=== PATIENT | male | born 1955 | race Caucasian/White ===

== ENCOUNTER 2017-02-03 16:04 | Emergency (ER) | payer BC ==
--- NOTE | 2017-02-18 13:49 | ER ---
ADMIT: 02/03/2017 RM/LOC: ER [facility] MR#: [id number] [address] [address] ANSHU COLEMAN M [address] [place] [address] Emergency Room Report SEX: M AGE: 61 : 1955 DATE: 02/03/2017 CHIEF COMPLAINT: Back pain. COURSE IN THE EMERGENCY ROOM: The patient was getting Percocet 1 tab here in the emergency room. The patient also complained of some urinary complaints. Bladder scan was done. After voiding, only had 249 post void. Creatinine was checked, that was normal. CT of the L-spine was done. It is negative for any acute findings. Sent the patient home. Told him to follow up with primary care physician if worsens. DA Ocampo / Gibson Jaeger MD / modl JOB #: [id number] CC: Gibson Jaeger MD, Attending Physician Phil Sigala MD, Family Physician
--- NOTE | 2017-03-06 21:25 | ER ---
ADMIT: 02/03/2017 RM/LOC: ER [facility] MR#: [id number] [address] [place] [id number] ANSHU COLEMAN M [address] [place] [address] Emergency Room Report SEX: M AGE: 61 : 1955 DATE: 02/03/2017 ADDENDUM: CHIEF COMPLAINT: Back pain. HISTORY OF PRESENT ILLNESS: This is a 61-year-old male, who has a history of liver carcinoma. He was sent into the ER by his oncologist in [place] for back pain. They were concerned that he could have mets to his spine. When he arise, he mainly complains of lower back pain with radiculopathy to his left leg. PAST MEDICAL HISTORY: Liver cancer. Has had radiation with a tube in his liver. MEDICATIONS: Please see nurse's note. ALLERGIES: NO KNOWN ALLERGIES. SOCIAL HISTORY: Denies any drug or alcohol use. Does smoke half pack of tobacco daily. FAMILY HISTORY: Noncontributory. REVIEW OF SYSTEMS: CONSTITUTIONAL: Denies any fevers, chills, or sweats. CARDIOVASCULAR AND RESPIRATORY: Denies any chest pain or shortness of breath. GI/: Denies any nausea, vomiting, diarrhea, or dysuria. MUSCULOSKELETAL: The only complaint is low back pain with a little bit of numbness going into his right lower leg, right thigh. All systems otherwise negative. PHYSICAL EXAMINATION: VITAL SIGNS: Blood pressure is 116/58, pulse is 104, respirations 18, temperature is 99.1, tympanic; saturation of oxygen is 99% on ADMIT: 02/03/2017 RM/LOC: ER [facility] MR#: [id number] [address] [place] [id number] ANSHU COLEMAN M [address] [place] [address] Emergency Room Report SEX: M AGE: 61 : 1955 room air. GENERAL APPEARANCE: The patient is in no acute distress, alert. HEENT: Pharynx is moist. No tonsillar swelling or exudate. NECK: No midline tenderness. BACK: No CVA tenderness. On exam, he is mostly tender on the lumbar spine, but not on the vertebrae itself lateral to the vertebrae and the soft tissues. MUSCULOSKELETAL: He has full range of motion with lower extremities. Full range of motion with all his toes. COURSE IN THE EMERGENCY ROOM: CT of his L-spine was done, is negative for any acute findings. I discharged him home and told him to follow up with his primary care physician as needed. DA Ocampo / Gibson Jaeger MD / gail JOB #: [id number] CC: Gibson Jaeger MD, Attending Physician Phil Sigala MD, Family Physician
[2017-03-31] MEDS ORDERED: VITAMIN B-150 MG PO (06:06)
[2017-03-31] MEDS ORDERED: NEXIUM40 MG PO (06:06)
[2017-03-31] MEDS ORDERED: GINSENG100 M1 PO (06:06)
[2017-03-31] MEDS ORDERED: BISACODYL5 MG PO (06:07)
[2017-03-31] MEDS ORDERED: COLACE-DPS100 MG PO (06:08)
[2017-03-31] MEDS ORDERED: FENTANYL1 EAC1 TD (06:08)
[2017-03-31] MEDS ORDERED: AUGMENTIN 250250 MG PO (06:09)
[2017-03-31] MEDS ORDERED: DILAUDID2 MG PO (06:09)
[2017-03-31] MEDS ORDERED: DIFLUCAN DPS150 MG PO (06:10)
[2017-03-31] MEDS ORDERED: NEURONTIN DPS300 MG PO (06:10)
== END 2017-02-03 18:15 | disposition home or self-care (01) ==
LOC: ER 16:04
PROC: BT20ZZZ Computerized Tomography (CT Scan) of Bladder (ICD-10-PCS; principal; 2017-02-03)
DX: M54.5 Low back pain (principal); F17.210 Nicotine dependence, cigarettes, uncomplicated; Z79.899 Other long term (current) drug therapy

== ENCOUNTER 2017-03-23 21:50 | Inpatient (IN) | payer BC ==
[~2017-03-23] VITALS: Ht 165.1 cm; Wt 62.9 kg
--- NOTE | ~2017-03-23 | ER ---
ADMIT: 03/24/2017 RM/LOC: 533 [facility] MR#: [id number] [address] [address] ANSHU COLEMAN M [address] [place] [address] Emergency Room Report SEX: M AGE: 61 : 1955 DATE: 03/23/2017 HISTORY OF PRESENT ILLNESS: The patient is a pleasant 61-year-old gentleman, came to the ER with chief complaint of right lower quadrant pain. Pain per patient started since noon. The patient has been recently diagnosed with liver tumor and also received radiation therapy treatment 2 months ago and the next appointment is in a month. Also, the patient is supposed to start chemotherapy tomorrow. The patient also has a pigtail catheter placed to drain the bile, which recently has been manipulated and states that the catheter is working properly. The patient has been closely followed up by [facility]. The patient denies any vomiting, but has some nausea. Pain is sharp, 9 to 10/10 in severity and is right lower quadrant. PHYSICAL EXAMINATION: VITAL SIGNS: The patient was tachycardic with heart rate of 110, had low-grade fever with a temperature of 100.3, blood pressure in the ER was 115/70, and respiratory rate was 18. GENERAL: The patient was in moderate distress, because of the pain. HEENT/NECK: There was no icterus. Pupils were 3 mm, reactive to light bilaterally. Conjunctivae were not pale. Trachea was midline. There was no bruit in the neck. I did not feel any enlarged lymph nodes in the head and neck and supraclavicular area and axillary area. LUNGS: Clear bilaterally. HEART: Normal S1, S2, without any murmurs. ABDOMEN: Non-tense, no rebound, no guarding. The patient had moderate right lower quadrant tenderness. The patient had no CVA tenderness. EXTREMITIES: I did not notice any swelling or pitting edema. The patient had normal peripheral pulses. Motor and sensory are grossly normal. There is some bile coming out of the drain and there is no erythema around the drain. Kenyon Dennison MD/ gail JOB #: [id number] CC: Sammy Sigala MD, Attending Physician Sammy Sigala MD, Family Physician
--- NOTE | ~2017-03-23 | CO ---
ADMIT: 03/24/2017 RM/LOC: 533 [facility] MR#: [id number] [address] [address] ANSHU COLEMAN M [address] [place] [address] Consultation SEX: M AGE: 61 : 1955 DATE OF CONSULTATION: 03/24/2017 ATTENDING PHYSICIAN: Sammy Sigala CONSULTING PHYSICIAN: Saad Calvo MD HISTORY OF PRESENT ILLNESS: The patient is a very pleasant 61-year-old male, recently diagnosed with hepatocellular cancer who has had recent treatment at [facility]. Reportedly, has had radiation therapy to his liver and has a biliary drain in place. The patient presented with abdominal discomfort, some nausea, low grade temps who was admitted for observation, pain control, and antibiotics. The patient had a workup culture of his biliary fluid, which was certainly cloudy in color with over 10,000 white blood cells within the fluid with Gram stain positive for multiple bacteria and yeast. His CT scan of abdomen and pelvis, which showed no intraabdominal complicating features and there is some expected inflammation around the liver secondary to the tumor and recent radiation treatment. In addition, the CT scan showed increased size of the liver lesions compared to another recent study done. His medications are outlined in the hospital chart, which include Zosyn and vancomycin. PAST MEDICAL HISTORY: Mostly surrounds as advanced hepatocellular cancer reflux disease. SOCIAL HISTORY: He was a previous smoker. Nondrinker. FAMILY HISTORY: Otherwise, noncontributory. ALLERGIES: HE HAS NO ALLERGIES. REVIEW OF SYSTEMS: Denies headaches. No chest pain or shortness of breath. He has had abdominal pain per HPI. No extremity complaints. PHYSICAL EXAMINATION: VITAL SIGNS: He is afebrile. Vitals are stable. HEART: Regular. LUNGS: Clear. ABDOMEN: Soft, nondistended, mildly tender to deep palpation throughout. He ADMIT: 03/24/2017 RM/LOC: 533 [facility] MR#: [id number] [facility] [address] [address] ANSHU COLEMAN M [address] [place] [address], [place] [address] Consultation SEX: M AGE: 61 : 1955 has a biliary drain in place that somewhat cloudy and functioning normally. ASSESSMENT AND PLAN: The patient is a 61-year-old with likely cholangitis and with a large hepatocellular cancer with central tumor necrosis, likely from secondary to recent radiation treatment. I believe he is being started on antifungals and broad-spectrum antibiotics. At this point in time, with biliary drain in place, antibiotics do not see any need for consideration of cholecystectomy. Hopefully, we will continue antibiotic therapy. The patient continues to improve. May need reconsult with our [facility] colleagues regarding any other suggestive palliative measures for the patient certainly if his advanced liver cancer and cholangitis with drain in place makes his management very difficult. Saad Calvo MD/ gail JOB #: [id number] CC: Sammy Sigala, Attending Physician Sammy Sigala, Family Physician
--- NOTE | 2017-03-24 19:52 | ER ---
ADMIT: 03/24/2017 RM/LOC: 533 [facility] MR#: [id number] [address] [place], [place] [address] ANSHU COLEMAN M [address] [place] [address] Emergency Room Report SEX: M AGE: 61 : 1955 DATE: 03/23/2017 HISTORY OF PRESENT ILLNESS: The patient is a 61-year-old male, came to the ER with chief complaint of right lower quadrant pain which is sharp and moderate- to-severe in severity since noon. The patient denies similar pain in the past. The patient states he has been recently since November diagnosed with liver cancer and had radiation therapy 2 months ago and is supposed to have chemotherapy tomorrow. The patient also complains of nausea without any vomiting. The patient states the pigtail drain was put in the bile system because of the liver was very large and for draining the bile. The use the pigtail was recently manipulated, we checked which was working, at [facility]. The patient has close followup with the oncologist and child day care provider at [facility]. PHYSICAL EXAMINATION: VITAL SIGNS: In the ER, the patient has low-grade fever of 100.3, and heart rate of 111. Sepsis workup is started. The patient has stable blood pressure of 115/70, with respiratory rate of 18. GENERAL: The patient is in moderate distress, is alert, oriented. HEENT/NECK: I did not see any obvious jaundice and the sclerae is not icteric, and conjunctivae are not pale. CHEST: Clear bilaterally without any crackles. HEART: Normal S1, S2, without any murmurs or gallops. ABDOMEN: Right lower quadrant tenderness without any rebound or guarding. There is a catheter in the middle of the abdomen below the xiphoid area, which is full of bile and there is no erythema or pus discharge around it. EXTREMITIES: I did not see any swelling or pitting edema. Normal peripheral pulses. EMERGENCY ROOM COURSE: Followup lab work showed WBC of 9.7, with hemoglobin of 9.7, and platelets of 630,000. PT was 10.9, creatinine was 0.6, with glucose of 110. AST and ALT were 6 and 62 respectively. Lactic acid was 1.4, ADMIT: 03/24/2017 RM/LOC: 533 [facility] MR#: [id number] [address] [address] ANSHU COLEMAN M [address] [place] [address] Emergency Room Report SEX: M AGE: 61 : 1955 and the patient had albumin of 2.2 with alkaline phosphatase of 476. Absolute neutrophil count was 6800. The specimen of the bile was sent to the lab, which showed numerous, more than 10,000 rbc and wbc and yeast and Gram- positive cocci, as the 1st specimen was got from the back, non-sterile, the 2nd specimen was sent to the labs; results pending. CT scan of the abdomen and pelvis was suggestive of large tumor in the liver with necrotic center and questionable inflammation and infection. There is also questionable cholecystitis versus reactive changes. There was no indication of appendicitis on the CT scan. The patient was started on antibiotic therapy with vancomycin and Zosyn for abdominal pain, sepsis, questionable peritonitis versus developing cholangitis versus cholecystitis. Family Medicine was consulted and the patient was admitted for further followups and treatments. Kenyon Dennison MD/ gail JOB #: [id number] CC: Sammy Sigala MD, Attending Physician Sammy Sigala MD, Family Physician
--- NOTE | 2017-03-25 07:50 | HP ---
ADMIT: 03/24/2017 RM/LOC: 533 [facility] MR#: [id number] [address] [address] ANSHU COLEMAN M [address] [place] [address] History and Physical SEX: M AGE: 61 : 1955 DATE OF SERVICE: HISTORY OF PRESENT ILLNESS: Anshu Coleman presented to the emergency room with history over the last 24 hours of significantly increased abdominal pain associated with increased nausea and vomiting and a low-grade fever in the emergency room. This is in the background of a patient with hepatocellular carcinoma, which is advanced. Has been managed by Dr. Espinoza, medical oncologist at [facility]. He has had radiation therapy. He has had external catheter placed for biliary drainage and he is scheduled to start some oral chemotherapy (sorafenib) in the near future. His primary is Dr. Sammy Sigala. On presentation in the emergency room, Dr. Dennison did a fair extensive evaluation including a CT scan of the abdomen, which demonstrated a huge multinodular liver with one extremely large mass with some necrosis. His labs were done also notable that he did a Gram stain of drainage from the biliary catheter. He had extensive bacteria and is also has some yeast and white cells in the drainage. He has vomited multiple times since he came to the hospital. His sepsis markers thus far have been negative, however. He is aware of the serious nature of this in the interval status of this and he is DNR/DNI, but he wants to continue other treatments at this time. PAST MEDICAL HISTORY: First and foremost the primary hepatocellular carcinoma locally advanced with treatments as described above. Also, history of alcoholism, acid reflux, erectile dysfunction, and cervical spinal stenosis. SOCIAL HISTORY: The patient is . Former history of smoking and alcohol use. I believe he has quit both at this time. FAMILY HISTORY: Coronary artery disease in his father. Sister of unknown type of cancer. MEDICATIONS: Home medications on admission were vitamin supplement, Dulcolax, and ginseng. ALLERGIES: NONE KNOWN. REVIEW OF SYSTEMS: CONSTITUTIONAL: Low-grade fever. No reported chills. Roughly 30-pound weight loss over the last six months since the diagnosis was made. GI: As in the above history. No report of any change in bowel movements. : No complaints. CV: No chest pain. RESPIRATORY: Not short of breath or excessive cough. ENT: No acute complaints. EYES: No acute complaints. NEURO: Nothing focal at this time. PSYCH: Mental status under the circumstances has been good. PHYSICAL EXAMINATION: GENERAL: This is a somewhat cachectic appearing, alert, 61-year-old male. He vomited once during my evaluation. ADMIT: 03/24/2017 RM/LOC: 533 [facility] MR#: [id number] [address] [address] ANSHU COLEMAN [address] [place] [address] History and Physical SEX: M AGE: 61 : 1955 VITAL SIGNS: Around the time I examined him, his temp was 97.6, pulse 103, respirations 18, BP 106/67, and O2 saturation 93% on room air. He is fully alert. ENT: Hearing is normal. No nasal discharge. Oral mucous membranes are moist. No oral lesions are identified. EYES: Normal in appearance. Pupils equal. NECK: No masses or tenderness or lymphadenopathy. HEART: Regular rhythm. I do not hear a murmur. LUNGS: Clear anterior and posterior. Normal respiratory effort. ABDOMEN: The liver is firm extending well below the costal margin. Fairly diffuse tenderness of the abdomen, but I do not discern any rebound. Bowel sounds are audible. No clinical or radiographic signs of ascites. He has a biliary drainage catheter emanating from his upper anterior chest. GENITALIA: Not examined. SKIN: No acute rashes. EXTREMITIES: Upper extremities unremarkable. Other than his cachectic state, lower extremities otherwise likewise unremarkable. NEURO: Grossly intact. PSYCH: He is alert, calm. IMPRESSION: 1. Fever, vomiting, and abdominal pain in the setting of a patient with advanced hepatocellular carcinoma. 2. Concern for acute cholangitis based on clinical presentation and bacterial content of his biliary drainage. PLAN: Per the patient's request to be maintained DNR/DNI, but full treated otherwise. I started on broad-spectrum antibiotic coverage and I have asked for Infectious Disease consultation, Dr. Espana, he was agreed to see him. Tried to manage his symptoms with Dilaudid, antiemetics, and IV fluids at the present time. Prognosis is obviously guarded. The patient is aware of that. Dwight Lucas MD/ gail JOB #: [id number] CC: Sammy Sigala, Attending Physician Sammy Sigala, Family Physician
--- NOTE | 2017-03-26 08:10 | CO ---
ADMIT: 03/24/2017 RM/LOC: 533 [facility] MR#: [id number] [address] [address] ANSHU COLEMAN M [address] [place] [address] Consultation SEX: M AGE: 61 : 1955 DATE OF CONSULTATION: 03/25/2017 ATTENDING PHYSICIAN: Sammy Sigala CONSULTING PHYSICIAN: Amaya Phillips MD REASON FOR CONSULTATION: Abdominal pain. HISTORY OF PRESENT ILLNESS: The patient is a pleasant 61-year-old gentleman with hepatocellular carcinoma diagnosed on November 08, 2016, admitted with abdominal pain. He was seen at [facility], had surgery and he has currently a biliary drain. His pain is constant, 8/10 on visual analogue scale, aching, throbbing pain. Radiates to right upper back. At present, he is on Dilaudid PUBLICITY AGENT, which is helping some. The patient states that he has tried fentanyl in the past which was helpful. He is not on any neuropathic pain medications or muscle relaxants at this time. PAST MEDICAL HISTORY: Significant for hepatocellular carcinoma and GERD. PAST SURGICAL HISTORY: Left shoulder surgery. MEDICATIONS: Reviewed from the med list. FAMILY HISTORY: Noncontributory. REVIEW OF SYSTEMS: As per HPI. Other than that, all other review of systems noted to be negative. PHYSICAL EXAMINATION: GENERAL: The patient is alert, oriented, not in acute distress. HEENT: PERRLA. EOMI. NECK: Supple. No lymphadenopathy. LUNGS: Clear to auscultation. HEART: Regular rate and rhythm. ABDOMEN: Soft, nondistended. Tender in the right upper quadrant. Drain noted. NEUROLOGICAL: Intact. ASSESSMENT: 1. Hepatocellular carcinoma. 2. Chronic abdominal pain. ADMIT: 03/24/2017 RM/LOC: 533 [facility] MR#: [id number] [address] [address] ANSHU COLEMAN M [address] [place] [address] Consultation SEX: M AGE: 61 : 1955 3. Cancer pain. PLAN: 1. The patient is not willing for any invasive interventional pain management therapy including intrathecal morphine pump. 2. I will start the patient on fentanyl 12 mcg q.72 hours, plan to increase to 25 mcg q.72 hours in future. 3. Continue Dilaudid PUBLICITY AGENT for now. 4. Gabapentin 300 mg p.o. at bedtime for 3 days, then b.i.d. for 3 days, then t.i.d. for 3 days, then q.i.d. 5. Follow up in pain clinic in 2 weeks. Thank you for the consultation. Amaya Phillips MD/ gail JOB #: [id number] CC: Sammy Sigala, Attending Physician Sammy Sigala, Family Physician
[2017-03-31] MEDS ORDERED: VITAMIN B-150 MG PO (06:06)
[2017-03-31] MEDS ORDERED: NEXIUM40 MG PO (06:06)
[2017-03-31] MEDS ORDERED: GINSENG100 M1 PO (06:06)
[2017-03-31] MEDS ORDERED: BISACODYL5 MG PO (06:07)
[2017-03-31] MEDS ORDERED: FENTANYL1 EAC1 TD (06:08)
[2017-03-31] MEDS ORDERED: COLACE-DPS100 MG PO (06:08)
[2017-03-31] MEDS ORDERED: DILAUDID2 MG PO (06:09)
[2017-03-31] MEDS ORDERED: AUGMENTIN 250250 MG PO (06:09)
[2017-03-31] MEDS ORDERED: NEURONTIN DPS300 MG PO (06:10)
[2017-03-31] MEDS ORDERED: DIFLUCAN DPS150 MG PO (06:10)
--- NOTE | 2017-04-19 08:57 | CO ---
ADMIT: 03/24/2017 RM/LOC: 533 [facility] MR#: [id number] [address] [address] ANSHU COLEMAN M [address] [place] [address] Consultation SEX: M AGE: 61 : 1955 DATE OF CONSULTATION: 03/24/2017 ATTENDING PHYSICIAN: Sammy Sigala CONSULTING PHYSICIAN: Saad Calvo MD REASON FOR CONSULTATION: Gallbladder wall thickening upon CT. HISTORY OF PRESENT ILLNESS: Anshu is a very pleasant, 61-year-old, , although [place]alese-speaking male with an unfortunate history of hepatocellular carcinoma diagnosed at the 08 of November of this year. He presents to the hospital because he had sudden onset of right upper quadrant abdominal pain that started yesterday. He has also become nauseous with this, and while in the hospital has had a couple of times emesis. He denies any hematemesis, fever, chills, night sweats, diarrhea, constipation, dark or bloody stools. He was diagnosed with hepatocellular carcinoma from [facility] where they also addressed his gallbladder at that time. Currently, he has a biliary drain in place. He had a HIDA scan performed on 11/24 of this year which revealed no uptake of the radiotracer within the gallbladder. PAST MEDICAL HISTORY: Significant for hepatocellular carcinoma and GERD. PAST SURGICAL HISTORY: Left shoulder surgery. ALLERGIES: NO KNOWN MEDICATION OR DRUG ALLERGIES, BUT HAS AN INTOLERANCE TO MORPHINE. MEDICATIONS: Well documented in chart. FAMILY HISTORY: Noncontributory. SOCIAL HISTORY: The patient denies any current tobacco, alcohol, or illicit drug use. REVIEW OF SYSTEMS: CONSTITUTIONAL: The patient denies any fever, chills, or night sweats. The rest of a comprehensive 10-point review of systems was performed and all other systems are negative. PHYSICAL EXAMINATION: GENERAL: The patient is in no acute distress. He is alert and oriented. HEENT: Head is normocephalic and atraumatic. EOMS are intact. Conjunctivae are free of icterus, erythema, or pallor. Pinnae, free of deformities. Nose is midline. No tracheal deviation. NECK: Supple. SKIN: Negative for jaundice, clubbing, edema, pallor, or cyanosis. LUNGS: Normal respiratory effort. ADMIT: 03/24/2017 RM/LOC: 533 [facility] MR#: [id number] [address] [address] ANSHU COLEMAN [address] [place] [address] Consultation SEX: M AGE: 61 : 1955 HEART: Distal pulses intact. Regular rate and rhythm. ABDOMEN: Soft, nondistended, tender in right upper quadrant. Drain noted protruding through the abdomen with brownish fluid. NEURO: Grossly intact. DIAGNOSTIC IMAGING: CT of abdomen and pelvis revealed a large hypodensity noted within the liver consistent with his malignancy. There is also gallbladder wall thickening noted. ASSESSMENT: 1. Chronic cholecystitis. 2. Hepatocellular carcinoma. PLAN: Given the patient's underlying condition, it is unlikely that we would be successful removing his gallbladder. It is hard to tell as well that his gallbladder is definitively causing his symptoms with the hepatocellular carcinoma also in close proximity to this. The patient and his significant other, who was present during my whole assessment, agree with this plan and have good understanding that surgery may not be the best course of action, which I speculate is probably why he has the catheter in the first place. Because of this, he will probably benefit the most from surgical consultation from [facility], but at the very least we can potentially offer a consult to Interventional Radiology and may putting in a T tube or another catheter. Final clinical decision-making will be based upon Dr. Calvo once I report to him. Thank you for the consultation on this patient. DA Gaitan / Saad Calvo MD / gail JOB #: [id number] CC: Sammy Sigala, Attending Physician Sammy Sigala, Family Physician
--- NOTE | 2017-04-26 10:21 | CO ---
ADMIT: 03/24/2017 RM/LOC: 533 [facility] MR#: [id number] [address] [address] ANSHU COLEMAN M [address] [place] [address] Consultation SEX: M AGE: 61 : 1955 DATE OF CONSULTATION: 03/24/2017 ATTENDING PHYSICIAN: Sammy Sigala CONSULTING PHYSICIAN: Kelley Espana MD REASON FOR CONSULT: Sepsis. Thank you, Dr. Lucas, for the consult and involving me in this patient's care. HISTORY OF PRESENT ILLNESS: The patient is a 61-year-old man with history of hepatocellular carcinoma, which was recently diagnosed in November of 2016. He was evaluated at [facility] and underwent radiation therapy. He currently has a biliary drain, which enters at the epigastric region, draining bile. The patient presented to the ER yesterday with complaint of right upper quadrant pain, which started around yesterday. It was associated with some nausea, but denied any vomiting. He also had some low-grade fevers and was noted to have fever of 100.3 in the ER. PAST MEDICAL HISTORY: 1. Advanced hepatocellular carcinoma. 2. Tobacco use. 3. GERD. SOCIAL HISTORY: He lives at home with his daughter and . Denies any alcohol or recreational drug use. He was smoking one pack per day and quit since November 2016. FAMILY HISTORY: Denies any family history of cancer, heart disease, or diabetes mellitus. ALLERGIES: NO KNOWN DRUG ALLERGIES. CURRENT MEDICATIONS: Include vancomycin 1 g q.12 hours and Zosyn 3.375 g every 8 hours. REVIEW OF SYSTEMS: A 10-point review of systems negative except as mentioned in HPI. PHYSICAL EXAMINATION: VITAL SIGNS: Current temperature 96.4, heart rate 85, blood pressure 115/59, 99% on room air, and respirations 18. GENERAL: No acute distress. HEENT: Head is normocephalic and atraumatic. Extraocular movements intact. LYMPH: No palpable anterior/posterior cervical or supraclavicular lymphadenopathy. CHEST: Clear to auscultation bilaterally. No wheezes, rales, or rhonchi. Decreased breath sounds at bases. CARDIOVASCULAR: S1 and S2 heard. Regular rate and rhythm. ABDOMEN: There is guarding, right upper quadrant tenderness, active bowel ADMIT: 03/24/2017 RM/LOC: 533 [facility] MR#: [id number] [address] [address] ANSHU COLEMAN M [address] [place] [address] Consultation SEX: M AGE: 61 : 1955 sounds. There is a biliary drain noted with bile in the bag. PSYCH: Normal affect. Memory intact. SKIN: No rash noted on exposed skin. DATA REVIEW: The bile from the bag was sent, which the Gram stain showed few WBC, many gram-positive cocci, many gram-positive rods, many gram-negative rods, and few yeast. Culture is pending at this time. Blood cultures have no growth to date. Urinalysis was negative. CT scan of abdomen and pelvis was done, which showed mild gallbladder wall thickening and inflammatory change, which could be cholecystitis. No gallstones. Progression of liver masses with internal-external biliary drainage catheter. Chest x-ray was negative. ASSESSMENT AND PLAN: 1. Sepsis likely secondary to biliary source. Multiple organisms growing from the bile fluid including yeast. At this time, I will continue him on vancomycin and Zosyn and also add Micafungin IV 100 mg once daily. Blood cultures are no growth to date. We will narrow antibiotics accordingly. 2. Right upper quadrant pain likely secondary to cholecystitis and his malignancy. I will consult Surgery at this time if he needs any HIDA scan or further management. Given his advanced hepatocellular cancer, it is likely guarded prognosis. 3. Hepatocellular cancer status post radiation. Thank you for the consult and I will continue to follow the patient. Kelley Espana MD/ gail JOB #: [id number] CC: Sammy Sigala, Attending Physician Sammy Sigala, Family Physician
--- NOTE | 2017-05-14 19:05 | DS ---
ADMIT: 03/24/2017 RM/LOC: 533 [facility] MR#: [id number] [id number] [place], [place] [address] ANSHU COLEMAN M [address] [place] [address] General Discharge Summary SEX: M AGE: 61 : 1955 ADMISSION DATE: 03/24/2017 DISCHARGE DATE: 03/30/2017 INDICATION FOR HOSPITALIZATION: Ascencion is a 61-year-old, , male, well known to myself, admitted by Dr. Lucas with nausea, vomiting, and low-grade fevers through the emergency room with known hepatocellular carcinoma, managed by Dr. Barry at [facility]. He has external biliary catheter drain, had been started on oral chemotherapy and presented to the ER with a large liver mass with necrosis. He has extensive bacteria and yeast and drainage from the biliary catheter. He was admitted for further evaluation and management. Please see his admission H and P for the details regarding his history of present illness, past medical history, physical exam, and assessment at time of hospitalization. HOSPITAL COURSE: On admission, he was started on IV fluids, analgesics, and antiemetics. Routine cultures were obtained, and he was started on Zosyn and vancomycin in the ER. He is made DNR/DNI status. Infectious Disease was consulted. Routine nausea medications and IV fluids and electrolytes were ordered. Surgery was consulted regarding his complex problems and his liver. POLST form was requested on the . Dr. Phillips was requested for possible pain management. Vanco dose adjustments were made on the . By the , his vital signs were stable. Ascites culture grew multiple organisms. Blood cultures were negative. IV fluid and electrolyte adjustments were made with hypokalemia noted. MRI of the abdomen and pelvis for followup of his hepatocellular carcinoma were requested by the family and arranged copies to his oncologist. Over the next couple days, he continued to improve. No MRSA was noted, and his vanco was discontinued on March 29. The patient was switched from vanco and Zosyn and Unasyn on March 29 by Infectious Disease. On March 30, the patient was discharged to home. FINAL DISCHARGE DIAGNOSES: Include: 1. Metastatic hepatocellular carcinoma with peritonitis with positive cultures with multiple organisms. 2. Sepsis. 3. Transcutaneous biliary drain. 4. Hyponatremia. 5. Alcohol use disorder. 6. Erectile dysfunction. 7. Cervical spine stenosis. 8. Acid reflux. PROCEDURES: Include IV antibiotics, fluid and electrolyte adjustments, IV analgesics and antiemetics. MEDICATIONS ON DISCHARGE: Include: 1. Nexium 40 mg daily. 2. Bisacodyl 10 mg daily. 3. Fentanyl 25 mcg patch q.72 hours. 4. Docusate sodium 100 mg b.i.d. ADMIT: 03/24/2017 RM/LOC: 533 [facility] MR#: [id number] [address] [place], [place] [id number] [place] [address] General Discharge Summary SEX: M AGE: 61 : 1955 5. Dilaudid 1 or 2 mg every 4 hours p.r.n. pain. 6. Augmentin 875 mg b.i.d. with meals for 14 days. 7. Fluconazole 150 mg daily for 14 days. 8. Gabapentin 300 mg q.i.d. LAB/X-RAY DATA: Include on March 30; white count of 9.9, hemoglobin 9.3, and platelet count 748,000. On March 23; white count 9.7, hemoglobin 9.7, and platelet count of 636,000. Peritoneal fluid shows too many bacteria to perform differential. INR on March 23 was 1.05. On March 23; UA is normal. On March 30; sodium 133, potassium 4.3, BUN of 6, creatinine 0.7 with glucose 109. On March 23; sodium 136, potassium 4.2, BUN of 13 with creatinine 0.6 and glucose 116, AST is elevated at 60, magnesium is 2.1. Lactic acid is 1.4. Vanco levels were obtained. Influenza A and B were negative on admission. Blood cultures showed no growth after 5 days. Ascites culture grew grossly mixed culture including multiple organisms, no pseudomonas, MRSA, or VRE. Urine culture was negative. Gallbladder thickening was noted on his CAT scan on March 23 with progression of liver mass with a drain. Multiple liver mets were noted on the MRI of the abdomen and pelvis with gallstones and biliary drain. Please see his hospital record for further details. Sammy Sigala MD/ gail JOB #: [id number] CC: Sammy Sigala MD, Attending Physician Sammy Sigala MD, Family Physician
== END 2017-03-30 10:40 | disposition home or self-care (01) | DRG 871 ==
LOC: ER 21:50 → 5MS 03-24 01:15
PROVIDERS: ADMIT Family Medicine
DX: A41.9 Sepsis, unspecified organism (principal); K65.9 Peritonitis, unspecified; K83.0 Cholangitis; R18.8 Other ascites; C22.8 Malignant neoplasm of liver, primary, unspecified as to type; M48.02 Spinal stenosis, cervical region; E87.1 Hypo-osmolality and hyponatremia; K81.1 Chronic cholecystitis; R63.4 Abnormal weight loss; E87.6 Hypokalemia; K21.9 Gastro-esophageal reflux disease without esophagitis; Z87.891 Personal history of nicotine dependence; Z82.49 Family history of ischemic heart disease and other diseases of the circulatory system; Z96.89 Presence of other specified functional implants; Z66 Do not resuscitate